=== PATIENT | female | born 1985 | race Caucasian/White ===

== ENCOUNTER 2023-09-11 00:59 | Emergency (ER) | payer SELFPAY ==
[2023-09-11 01:06] VITALS: BP 138/75; PULSE 60; RESP 18; TEMP 98; BMI 26.4
[2023-09-11 02:08] LABS: BASO % 0.6 % (0-2.0); EOS % 3.2 % (0-4.5); HEMATOCRIT 36.4 % (32.4-45.2); HEMOGLOBIN 12.1 GM/dL (10.7-15.3); MCH 28.5 pg (25.7-33.7); MCHC 33.2 g/dl (32.0-36.0); MEAN CELL VOLUME 85.8 fl (80-96); MEAN PLT VOLUME 7.7 fl (7.5-11.1); MONO % 9.2 % (3.8-10.2); PLATELET COUNT 341 10^3/uL (134-434); RBC 4.24 M/mm3 (3.60-5.2); RDW 14.2 % (11.6-15.6); WHITE BLOOD COUNT 7.8 K/mm3 (4.0-10.0)
[2023-09-11 02:27] LABS: CHLORIDE 107 mmol/L (98-107); POTASSIUM 3.8 mmol/L (3.5-5.1); SODIUM 138 mmol/L (136-145)
[2023-09-11 02:30] LABS: ALBUMIN 3.4 g/dl (3.4-5.0); ANION GAP 6 mmol/L (4-13); BLOOD UREA NITROGEN 15.4 mg/dL (7-18); CALCIUM 8.8 mg/dL (8.5-10.1); CO2 25 mmol/L (21-32); GLUCOSE,RANDOM 117 mg/dL (74-106)
[2023-09-11 02:33] LABS: CREATININE 0.5 mg/dL (0.55-1.3); SGOT/AST 21 U/L (15-37); SGPT/ALT 28 U/L (13-61)
[2023-09-11 02:35] LABS: BILIRUBIN,TOTAL 0.3 mg/dL (0.2-1); TOT PROT 7.7 g/dl (6.4-8.2)
[2023-09-11 02:36] LABS: ALK PHOS 97 U/L (45-117)
[2023-09-11] MEDS ORDERED: LIDOCAINE 4% PATCH TP ONE (02:47)
[2023-09-11] MEDS ORDERED: ACETAMINOPHEN INJECTION 100 ML IVPB ONE (02:47)
[2023-09-11] MEDS: ACETAMINOPHEN 1000 MG/100 ML BAG IVPB ONE (03:00)
[2023-09-11] MEDS: LIDOCAINE 4% PATCH TP ONE (03:00)
[2023-09-11] MEDS ORDERED: LIDOCAINE PATCH REMOVAL MC SCH (22:00)
== END 2023-09-11 06:36 | disposition home or self-care (01) ==
LOC: JER 00:59
PROC: 3E033NZ Introduction of Analgesics, Hypnotics, Sedatives into Peripheral Vein, Percutaneous Approach (ICD-10-PCS; principal; 2023-09-11)
DX: S06.0X1A Concussion with loss of consciousness of 30 minutes or less, initial encounter (principal); R51.9 Headache, unspecified; M54.50 Low back pain, unspecified; R42 Dizziness and giddiness; W01.198A Fall on same level from slipping, tripping and stumbling with subsequent striking against other object, initial encounter; Y99.0 Civilian activity done for income or pay
CPT/HCPCS: 36415; 70450-TC; 71046-TC-FY; 72125-TC; 80053; 80307; 82962; 84484; 84703; 85025; 93005; 93010; 99285-25; J0131

== ENCOUNTER 2023-09-15 20:49 | Emergency (ER) | payer OTHER ==
[2023-09-15 20:55] VITALS: BP 110/59; PULSE 65; RESP 20; TEMP 97.7; BMI 25.4
[2023-09-15] MEDS ORDERED: KETOROLAC TROMETHAMINE 30 MG/1 ML VIAL ONE (22:04)
[2023-09-15] MEDS: KETOROLAC TROMETHAMINE 30 MG/1 ML VIAL IM ONE (22:09)
== END 2023-09-15 22:54 | disposition home or self-care (01) ==
LOC: JERFT 20:49
PROC: 3E0233Z Introduction of Anti-inflammatory into Muscle, Percutaneous Approach (ICD-10-PCS; principal; 2023-09-15)
DX: M54.2 Cervicalgia (principal); M54.9 Dorsalgia, unspecified; S16.1XXA Strain of muscle, fascia and tendon at neck level, initial encounter; S29.012A Strain of muscle and tendon of back wall of thorax, initial encounter; M79.10 Myalgia, unspecified site; W19.XXXA Unspecified fall, initial encounter
CPT/HCPCS: 99284-25